=== PATIENT | male | born 1980 | race African-American/Black ===

== ENCOUNTER 2018-04-28 14:55 | Emergency (ER) | payer SELFPAY ==
--- NOTE | 2018-04-28 15:55 | RAD ---
RADIOGRAPH RIGHT FOREARM TWO VIEWS: DATE: 04-28-18 TIME: 3:18 P.M. HISTORY: 38-year-old male status post-acute traumatic injury to the forearm. Comparison: 10-21-10 FINDINGS: There is a new finding of anterior displacement of the lunate bone. There is no acute fracture of the radius or ulna. Chronic blunting of the ulnar styloid process as previously demonstrated. IMPRESSION: 1. Traumatic lunate dislocation at the wrist, incompletely imaged. Recommend dedicated 3 or 4 view ra diographic study of the right wrist. 2. No acute fracture of the radius or forearm identified. POS: [facility]
--- NOTE | 2018-04-28 15:56 | RAD ---
RADIOGRAPH RIGHT HAND 3 VIEWS: Date: 04/28/18 Time: 1521 hours HISTORY: 38-year-old male with traumatic right hand pain. FINDINGS: The lunate is rotated and displaced anteriorly relative to the radius and relative to the other carpa l bones. No acute fracture is identified. The ulnar styloid process is chronically blunted, similar i n appearance to forearm radiograph of 10/21/10. IMPRESSION: Acute, traumatic lunate dislocation. POS: [facility]
--- NOTE | 2018-04-28 16:03 | RAD ---
RIGHT WRIST FOUR VIEWS: INDICATIONS: Injury. COMPARISON: None. FINDINGS: There is a volar perilunate dislocation of the lunate. There is also volar dislocation of the scapho id. No definite acute fracture is evident. IMPRESSION: Complex volar wrist dislocation with a perilunate component. POS: [facility]
[2018-04-28] MEDS ORDERED: HYDROcodone/Acetaminophen 10/325 mg Tablet ONE (17:12)
[2018-04-28] MEDS ORDERED: KETAMINE 100 MG/ML (5ML VIAL) ONE (17:33)
[2018-04-28] MEDS ORDERED: Naloxone HCl 0.4 mg/ml Vial ONE (17:33)
[2018-04-28] MEDS ORDERED: Sodium Chloride 0.9% 500 ML ONE (17:35)
--- NOTE | 2018-04-28 18:41 | RAD ---
RIGHT WRIST RADIOGRAPHS TWO VIEWS: 04/28/2018 PROVIDED CLINICAL HISTORY: Post reduction. FINDINGS: There is persistent volar dislocation of the lunate. IMPRESSION: As above. POS: [facility]
[2018-04-28 20:05] LABS: #Basophils 0.2 thou/uL (0.0-0.2); #Lymphocytes 1.4 thou/uL (1.20-3.40); #Monocytes 2.2 thou/uL (0.11-0.59); #Neutrophils 12.3 thou/uL (1.40-6.50); %Basophils 1.3 % (0.0-1.0); %Eosinophils 0.1 % (0.0-10.0); %Lymphocytes 8.7 % (21.0-51.0); %Monocytes 13.8 % (0.0-10.0); %Neutrophils 76.1 % (42.0-75.0); Hemoglobin 16.1 g/dL (14.0-18.0); Mean Corpuscular HGB CONC 32.5 g/dL (32.0-36.0); Mean Corpuscular Hemoglobin 30.1 pg (27.0-31.0); Mean Corpuscular Volume 92.5 fL (78.0-98.0); Mean Platelet Volume 7.4 fL (7.4-10.4); Platelet Count 261 thou/uL (130-400); RBC Distribution Width 12.4 % (11.5-14.5); Red Blood Cell (RBC) Count 5.34 mill/uL (4.70-6.10); White Blood Cell (WBC) Count 16.2 thou/uL (4.8-10.8)
[2018-04-28 20:11] LABS: ALT (SGPT) 18 U/L (8-55); AST (SGOT) 30 U/L (5-34); Albumin 5.2 g/dL (3.5-5.0); Alkaline Phosphatase 82 U/L (40-150); Anion Gap 19 mmol/L (10-20); BUN (Urea Nitrogen) 15 mg/dL (8.9-20.6); Bilirubin, Total 1.4 mg/dL (0.2-1.2); Calc. Creatinine Clearance 0 mL/min (70-130); Calcium 10.4 mg/dL (7.8-10.44); Carbon Dioxide 23 mmol/L (22-29); Chloride 100 mmol/L (98-107); Estimated GFR-MDRD 72; Globulin 3.5 g/dL (2.4-3.5); Glucose 84 mg/dL (70-105); Potassium 4.7 mmol/L (3.5-5.1); Protein, Total 8.7 g/dL (6.0-8.3); Sodium 137 mmol/L (136-145)
== END 2018-04-28 20:20 | disposition short-term general hospital (02) ==
LOC: NAV ERS 14:55
DX: S63.094A Other dislocation of right wrist and hand, initial encounter (principal); F41.9 Anxiety disorder, unspecified; F17.210 Nicotine dependence, cigarettes, uncomplicated; Z79.899 Other long term (current) drug therapy; W19.XXXA Unspecified fall, initial encounter
CPT/HCPCS: 29125; 80053; 85025; 99152; 99153; J2310; J7050

== ENCOUNTER 2018-05-14 09:06 | Emergency (ER) | payer SELFPAY ==
[2018-05-14] MEDS ORDERED: Bacitracin Zinc 1 Packet ONE (10:05)
== END 2018-05-14 10:25 | disposition home or self-care (01) ==
LOC: NAV ERS 09:06
DX: S51.811D Laceration without foreign body of right forearm, subsequent encounter (principal); F41.9 Anxiety disorder, unspecified; F17.210 Nicotine dependence, cigarettes, uncomplicated; Z79.899 Other long term (current) drug therapy

== ENCOUNTER 2018-09-09 13:59 | Outpatient (CLI) | payer OTHER ==
--- NOTE | 2018-09-09 14:14 | RAD ---
Right wrist 2 views HISTORY: Wrist pain. Disability evaluation. COMPARISON: 04/28/2018. FINDINGS: Dorsal operative fixation of the wrist with a longitudinal bar and screws transfixing the d istal radius to the carpus to the third metacarpal. No. Hardware lucency. Alignment is anatomic. Lunate is now in good position. Mild osteoarthritic changes of the wrist. IMPRESSION: Internal fixation of the wrist. Reduction of lunate dislocation. No evidence of hardware complication.
--- NOTE | 2018-09-09 15:09 | RAD ---
RIGHT HAND: 09/09/18 Two views. INDICATIONS: Disability evaluation. There has been prior internal fixation with a dorsal plate transfixing the radius to the third metaca rpal. Carpals appear normally aligned. MCP and IP joints show very mild degenerative change. No erosi ve change. No fracture or acute abnormality. IMPRESSION: Mild DJD. Postoperative changes as described. POS: [facility]
== END 2018-09-09 14:00 | disposition home or self-care (01) ==
LOC: NAV RAD 13:59
PROVIDERS: ATTEND Family Medicine
DX: Z02.71 Encounter for disability determination (principal); S63.094D Other dislocation of right wrist and hand, subsequent encounter; G56.21 Lesion of ulnar nerve, right upper limb; M19.041 Primary osteoarthritis, right hand; Z98.890 Other specified postprocedural states

== ENCOUNTER 2019-01-27 19:17 | Emergency (ER) | payer OTHER ==
[2019-01-27 19:52] LABS: Amphetamine Detected (NotDetected); Methamphetamine Detected (NotDetected)
[2019-01-27 19:53] LABS: Barbiturates Screen Not Detected (NotDetected); Benzodiazepine Screen Not Detected (NotDetected); Cocaine Metabolite Screen Detected (NotDetected); Medtox Control Line Valid? VALID (VALID); Methadone Not Detected (NotDetected); Opiate Screen Not Detected (NotDetected); Oxycodone Screen Not Detected (NotDetected); Phencyclidine (PCP) Not Detected (NotDetected); THC/Cannabinoid Screen Not Detected (NotDetected); Tricyclic Screen Not Detected (NotDetected)
[2019-01-27 20:19] LABS: Hemoglobin 15.6 g/dL (14.0-18.0); Mean Corpuscular Hemoglobin 29.3 pg (27.0-31.0); Mean Corpuscular Volume 91.6 fL (78.0-98.0); Mean Platelet Volume 7.2 fL (7.4-10.4); Platelet Count 274 thou/uL (130-400); RBC Distribution Width 12.5 % (11.5-14.5); Red Blood Cell (RBC) Count 5.33 mill/uL (4.70-6.10); White Blood Cell (WBC) Count 12.2 thou/uL (4.8-10.8)
[2019-01-27 20:22] LABS: Bilirubin Small (Negative); Blood, Urine Moderate (Negative); Clarity Slightly Cloudy (Clear); Glucose, Urine (Dipstick) Negative (Negative); Leukocyte Negative (Negative); Nitrite Negative (Negative); Protein, Urine (Dipstick) > or equal to 300 mg/dL (Neg-Trace); Urobilinogen 0.2 mg/dL (Less than 2)
[2019-01-27 20:29] LABS: Band 1 % (5-11); Eosinophils 1 % (0-10); Lymphocytes 9 % (21-51); MDiff Complete? YES; Monocytes 5 % (0-10); Neutrophil 84 % (42-75); Platelet Morphology Comment Appears Adequate; RBC Morphology Normal
[2019-01-27 20:33] LABS: Bacteria/HPF None Seen HPF (None Seen); WBC/HPF 0-3 HPF (0-3)
[2019-01-27 20:34] LABS: ALT (SGPT) 39 U/L (8-55); AST (SGOT) 74 U/L (5-34); Acetaminophen Less than 6.0 mcg/mL (10.0-30.0); Albumin 5.2 g/dL (3.5-5.0); Alcohol Less than 10 mg/dL (Less than 10); Alkaline Phosphatase 73 U/L (40-110); Anion Gap 20 mmol/L (10-20); BUN (Urea Nitrogen) 25 mg/dL (8.9-20.6); Bilirubin, Total 1.8 mg/dL (0.2-1.2); Calc. Creatinine Clearance 0 mL/min (70-130); Calcium 10.3 mg/dL (7.8-10.44); Carbon Dioxide 22 mmol/L (22-29); Chloride 102 mmol/L (98-107); Estimated GFR-MDRD 50; Glucose 120 mg/dL (70-105); Potassium 3.9 mmol/L (3.5-5.1); Protein, Total 8.2 g/dL (6.0-8.3); Salicylate Less than 8.0 mg/dL (15.0-30.0); Sodium 140 mmol/L (136-145)
[2019-01-27 20:51] LABS: CKMB 6.6 ng/mL (0-6.6)
[2019-01-27] MEDS ORDERED: Lorazepam 2 MG/ML VIAL ONE (22:32)
[2019-01-27] MEDS ORDERED: Sodium Chloride 0.9% 1,000 ML ONE (22:32)
== END 2019-01-27 23:30 | disposition short-term general hospital (02) ==
LOC: NAV ERS 19:17
DX: F15.129 Other stimulant abuse with intoxication, unspecified (principal); F14.129 Cocaine abuse with intoxication, unspecified; N28.9 Disorder of kidney and ureter, unspecified; R74.8 Abnormal levels of other serum enzymes; R79.89 Other specified abnormal findings of blood chemistry; F41.9 Anxiety disorder, unspecified; F17.210 Nicotine dependence, cigarettes, uncomplicated
CPT/HCPCS: 80053; 80306; 80307; 81003; 81015; 82550; 82553; 84484; 85025; 93005; 96374; J2060; J7050

== ENCOUNTER 2019-06-17 08:25 | Outpatient (CLI) | payer OTHER ==
--- NOTE | 2019-06-17 10:30 | ULT ---
ABDOMINAL ULTRASOUND HISTORY: Left lower quadrant abdominal pain for one week. FINDINGS: Liver: 2 echogenic lesions are seen in the right hepatic lobe measuring 1.5 cm and 1.2 cm may represe nt. Gallbladder: No gallbladder calculi are visualized. There is no gallbladder wall thickening or perich olecystic fluid. Common duct: Common duct is normal in caliber measuring 0.4 cm in diameter. Pancreas: The limited visualized pancreas demonstrates a normal sonographic appearance. IVC: Limited visualized IVC has a normal sonographic appearance. Aorta: The aorta is normal in caliber. Spleen: Within normal limits. Kidneys: A small 1.7 cm anechoic structure is seen in the medial aspect midportion left kidney most s uggestive of a cyst. The left kidney measures 10.5 cm in length. The right kidney has a normal sonographic appearance and measures 10.1 cm in length. IMPRESSION: 1. 2 echogenic lesions in the right hepatic lobe which may represent hemangiomas. [facility] for further evaluation and characterization. 2. Left renal cyst. 3. No gallbladder calculi are visualized, and the common duct is normal in caliber.
== END 2019-06-17 08:26 | disposition home or self-care (01) ==
LOC: NAV ULT 08:25
PROVIDERS: ATTEND Nurse Practitioner Family
DX: R10.32 Left lower quadrant pain (principal); K76.9 Liver disease, unspecified; N28.1 Cyst of kidney, acquired
CPT/HCPCS: 93975

== ENCOUNTER 2019-11-25 15:11 | Emergency (ER) | payer OTHER ==
[2019-11-25] MEDS ORDERED: Lorazepam 2 MG/ML VIAL ONE (16:06)
[2019-11-25] MEDS ORDERED: Sodium Chloride 0.9% 1,000 ML ONE ×2 (16:13→17:03)
[2019-11-25 16:23] LABS: #Basophils 0.2 thou/uL (0.0-0.2); #Monocytes 2.1 thou/uL (0.11-0.59); #Neutrophils 11.4 thou/uL (1.40-6.50); %Basophils 1.1 % (0.0-1.0); %Lymphocytes 6.6 % (21.0-51.0); %Monocytes 14.3 % (0.0-10.0); %Neutrophils 78.1 % (42.0-75.0); Hemoglobin 16.1 g/dL (14.0-18.0); Mean Corpuscular HGB CONC 31.3 g/dL (32.0-36.0); Mean Corpuscular Hemoglobin 29.7 pg (27.0-31.0); Mean Corpuscular Volume 94.9 fL (78.0-98.0); Mean Platelet Volume 7.8 fL (7.4-10.4); Platelet Count 271 thou/uL (130-400); RBC Distribution Width 12.3 % (11.5-14.5); Red Blood Cell (RBC) Count 5.41 mill/uL (4.70-6.10); White Blood Cell (WBC) Count 14.6 thou/uL (4.8-10.8)
[2019-11-25 16:41] LABS: ALT (SGPT) 42 U/L (8-55); AST (SGOT) 82 U/L (5-34); Albumin 5.5 g/dL (3.5-5.0); Alkaline Phosphatase 73 U/L (40-110); Anion Gap 23 mmol/L (10-20); BUN (Urea Nitrogen) 30 mg/dL (8.9-20.6); Bilirubin, Total 1.8 mg/dL (0.2-1.2); Calc. Creatinine Clearance 0 mL/min (70-130); Calcium 10.8 mg/dL (7.8-10.44); Carbon Dioxide 17 mmol/L (22-29); Chloride 101 mmol/L (98-107); Estimated GFR-MDRD 41; Globulin 3.1 g/dL (2.4-3.5); Glucose 109 mg/dL (70-105); Potassium 3.7 mmol/L (3.5-5.1); Protein, Total 8.6 g/dL (6.0-8.3); Sodium 137 mmol/L (136-145)
[2019-11-25 16:47] LABS: Acetaminophen Less than 6.0 mcg/mL (10.0-30.0); Alcohol Less than 10 mg/dL (Less than 10); Salicylate Less than 8.0 mg/dL (15.0-30.0)
[2019-11-25 17:05] LABS: Bilirubin Small (Negative); Blood, Urine Large (Negative); Clarity SL HAZY (Clear); Glucose, Urine (Dipstick) Negative (Negative); Ketone, Urine 15 mg/dL (Negative); Leukocyte Negative (Negative); Nitrite Negative (Negative); Protein, Urine (Dipstick) > or equal to 300 mg/dL (Neg-Trace); Urobilinogen 0.2 mg/dL (Less than 2); pH, Urine 5.5 (5.0-9.0)
[2019-11-25 17:07] LABS: RBC/HPF 0-3 HPF (0-3); Squamous Epithelial 0-3 HPF (0-3); WBC/HPF 0-3 HPF (0-3)
[2019-11-25 17:08] LABS: Bacteria/HPF Rare-Few HPF (None Seen); Mucous/LPF 1+ LPF (<2+)
[2019-11-25 17:09] LABS: Specific Gravity, Urine 1.028 (1.002-1.036)
[2019-11-25 17:11] LABS: Amphetamine Detected (NotDetected); Barbiturates Screen Not Detected (NotDetected); Benzodiazepine Screen Not Detected (NotDetected); Cocaine Metabolite Screen Not Detected (NotDetected); Medtox Control Line Valid? VALID (VALID); Methadone Not Detected (NotDetected); Methamphetamine Detected (NotDetected); Opiate Screen Not Detected (NotDetected); Oxycodone Screen Not Detected (NotDetected); Phencyclidine (PCP) Not Detected (NotDetected); THC/Cannabinoid Screen Not Detected (NotDetected); Tricyclic Screen Not Detected (NotDetected)
[2019-11-26 01:24] LABS: #Eosinphils 0.5 thou/uL (0.0-0.7); #Lymphocytes 1.7 thou/uL (1.20-3.40); #Monocytes 1.4 thou/uL (0.11-0.59); #Neutrophils 7.6 thou/uL (1.40-6.50); %Basophils 1.3 % (0.0-1.0); %Eosinophils 0.5 % (0.0-10.0); %Lymphocytes 15.2 % (21.0-51.0); %Monocytes 13.3 % (0.0-10.0); %Neutrophils 69.7 % (42.0-75.0); Hemoglobin 12.6 g/dL (14.0-18.0); Mean Corpuscular HGB CONC 31.8 g/dL (32.0-36.0); Mean Corpuscular Hemoglobin 29.9 pg (27.0-31.0); Mean Corpuscular Volume 94.1 fL (78.0-98.0); Mean Platelet Volume 7.1 fL (7.4-10.4); Platelet Count 201 thou/uL (130-400); RBC Distribution Width 12.2 % (11.5-14.5); Red Blood Cell (RBC) Count 4.22 mill/uL (4.70-6.10); White Blood Cell (WBC) Count 10.8 thou/uL (4.8-10.8)
[2019-11-26 01:25] LABS: #Basophils 0.1 thou/uL (0.0-0.2)
[2019-11-26 01:30] LABS: Anion Gap 12 mmol/L (10-20)
[2019-11-26 01:33] LABS: BUN (Urea Nitrogen) 17 mg/dL (8.9-20.6); CK (CPK) 3217 U/L (30-200); Calc. Creatinine Clearance 0 mL/min (70-130); Calcium 8.1 mg/dL (7.8-10.44); Carbon Dioxide 20 mmol/L (22-29); Chloride 109 mmol/L (98-107); Estimated GFR-MDRD Greater than 90; Glucose 96 mg/dL (70-105); Potassium 3.3 mmol/L (3.5-5.1); Sodium 138 mmol/L (136-145)
== END 2019-11-26 08:30 ==
LOC: NAV ERS 15:11
DX: F15.10 Other stimulant abuse, uncomplicated (principal); R45.851 Suicidal ideations; F60.3 Borderline personality disorder; F41.9 Anxiety disorder, unspecified; F17.210 Nicotine dependence, cigarettes, uncomplicated; Z79.891 Long term (current) use of opiate analgesic; Z79.899 Other long term (current) drug therapy
CPT/HCPCS: 80048; 80053; 80306; 80307; 81003; 81015; 82550; 85025; 96361; 96374; J2060; J7050

== ENCOUNTER 2020-01-29 15:33 | Emergency (ER) | payer OTHER ==
[2020-01-29 16:49] LABS: Amphetamine Detected (NotDetected); Cocaine Metabolite Screen Detected (NotDetected); Methamphetamine Detected (NotDetected); Opiate Screen Not Detected (NotDetected); Phencyclidine (PCP) Not Detected (NotDetected); THC/Cannabinoid Screen Detected (NotDetected)
[2020-01-29 16:50] LABS: Barbiturates Screen Not Detected (NotDetected); Benzodiazepine Screen Not Detected (NotDetected); Medtox Control Line Valid? VALID (VALID); Methadone Not Detected (NotDetected); Oxycodone Screen Not Detected (NotDetected); Tricyclic Screen Not Detected (NotDetected)
[2020-01-29] MEDS ORDERED: Lorazepam 0.5 MG TAB ONE (17:53)
[2020-01-29 18:55] LABS: #Basophils 0.1 thou/uL (0.0-0.2); #Lymphocytes 1.1 thou/uL (1.20-3.40); #Monocytes 1.3 thou/uL (0.11-0.59); #Neutrophils 9.4 thou/uL (1.40-6.50); %Lymphocytes 9.5 % (21.0-51.0); %Monocytes 11.1 % (0.0-10.0); %Neutrophils 78.5 % (42.0-75.0); Hemoglobin 16.4 g/dL (14.0-18.0); Mean Corpuscular HGB CONC 31.1 g/dL (32.0-36.0); Mean Corpuscular Hemoglobin 29.6 pg (27.0-31.0); Mean Corpuscular Volume 95.3 fL (78.0-98.0); Mean Platelet Volume 7.9 fL (7.4-10.4); Platelet Count 284 thou/uL (130-400); RBC Distribution Width 12.4 % (11.5-14.5); Red Blood Cell (RBC) Count 5.53 mill/uL (4.70-6.10)
[2020-01-29 19:13] LABS: ALT (SGPT) 19 U/L (8-55); AST (SGOT) 21 U/L (5-34); Acetaminophen Less than 6.0 mcg/mL (10.0-30.0); Albumin 5.3 g/dL (3.5-5.0); Alcohol Less than 10 mg/dL (Less than 10); Alkaline Phosphatase 74 U/L (40-110); Anion Gap 20 mmol/L (10-20); BUN (Urea Nitrogen) 20 mg/dL (8.9-20.6); Bilirubin, Total 1.8 mg/dL (0.2-1.2); Calc. Creatinine Clearance 0 mL/min (70-130); Calcium 10.1 mg/dL (7.8-10.44); Carbon Dioxide 18 mmol/L (22-29); Chloride 101 mmol/L (98-107); Estimated GFR-MDRD 62; Globulin 3.4 g/dL (2.4-3.5); Glucose 109 mg/dL (70-105); Protein, Total 8.7 g/dL (6.0-8.3); Salicylate Less than 8.0 mg/dL (15.0-30.0); Sodium 135 mmol/L (136-145)
== END 2020-01-29 20:23 ==
LOC: NAV ERS 15:33
DX: F15.10 Other stimulant abuse, uncomplicated (principal); E86.0 Dehydration; F41.9 Anxiety disorder, unspecified; F17.210 Nicotine dependence, cigarettes, uncomplicated; Z79.899 Other long term (current) drug therapy
CPT/HCPCS: 80053; 80306; 80307; 84484; 85025; 99284

== ENCOUNTER 2021-04-25 17:40 | Emergency (ER) | payer OTHER ==
[2021-04-25] MEDS ORDERED: Lorazepam 2 MG/ML VIAL ONE (18:25)
== END 2021-04-25 18:53 | disposition home or self-care (01) ==
LOC: NAV ERS 17:40
DX: F14.129 Cocaine abuse with intoxication, unspecified (principal); F17.210 Nicotine dependence, cigarettes, uncomplicated
CPT/HCPCS: 93005; 96372; J2060

== ENCOUNTER 2021-04-26 22:44 | Emergency (ER) | payer OTHER ==
[2021-04-26 23:17] LABS: Bilirubin Small (Negative); Blood, Urine Moderate (Negative); Clarity Clear (Clear); Glucose, Urine (Dipstick) Negative (Negative); Ketone, Urine 80 mg/dL (Negative); Leukocyte Negative (Negative); Nitrite Negative (Negative); Protein, Urine (Dipstick) 100 mg/dL (Neg-Trace); pH, Urine 5.5 (5.0-9.0)
[2021-04-26 23:24] LABS: Specific Gravity, Urine 1.026 (1.002-1.036)
[2021-04-26 23:46] LABS: Amphetamine Not Detected (NotDetected); Barbiturates Screen Not Detected (NotDetected); Benzodiazepine Screen Detected (NotDetected); Cocaine Metabolite Screen Detected (NotDetected); Methadone Not Detected (NotDetected); Methamphetamine Not Detected (NotDetected); Opiate Screen Not Detected (NotDetected); Oxycodone Screen Not Detected (NotDetected); Phencyclidine (PCP) Not Detected (NotDetected); THC/Cannabinoid Screen Detected (NotDetected); Tricyclic Screen Not Detected (NotDetected)
[2021-04-26 23:47] LABS: Medtox Control Line Valid? VALID (VALID)
[2021-04-26 23:48] LABS: Squamous Epithelial None Seen HPF (0-3); WBC/HPF 0-3 HPF (0-3)
[2021-04-26 23:49] LABS: Bacteria/HPF None Seen HPF (None Seen); Mucous/LPF 1+ LPF (<2+)
[2021-04-26] MEDS ORDERED: Lorazepam 2 MG/ML VIAL ONE (23:57)
== END 2021-04-27 01:11 | disposition home or self-care (01) ==
LOC: NAV ERS 22:44
DX: F19.10 Other psychoactive substance abuse, uncomplicated (principal); F17.210 Nicotine dependence, cigarettes, uncomplicated
CPT/HCPCS: 80306; 93005; 96372; J2060

== ENCOUNTER 2021-04-27 15:14 | Emergency (ER) | payer OTHER ==
[2021-04-27] MEDS ORDERED: Lorazepam 0.5 MG TAB ONE (15:29)
[2021-04-27] MEDS ORDERED: Boostrix 0.5 ML (Tdap) VIAL ONE (15:29)
[2021-04-27] MEDS ORDERED: Lorazepam 2 MG/ML VIAL ONE (16:07)
[2021-04-27] MEDS ORDERED: Lidocaine 1% w/Epinephrine 1:100K 20 ML VIAL ONE (16:26)
[2021-04-27 16:37] LABS: Bilirubin Small (Negative); Blood, Urine Moderate (Negative); Clarity Clear (Clear); Glucose, Urine (Dipstick) Negative (Negative); Ketone, Urine 80 mg/dL (Negative); Leukocyte Negative (Negative); Nitrite Negative (Negative); Protein, Urine (Dipstick) 100 mg/dL (Neg-Trace); pH, Urine 5.5 (5.0-9.0)
[2021-04-27 16:40] LABS: Specific Gravity, Urine 1.029 (1.005-1.030)
[2021-04-27 16:47] LABS: Squamous Epithelial 0-3 HPF (0-3); WBC/HPF 0-3 HPF (0-3)
[2021-04-27 16:48] LABS: THC/Cannabinoid Screen Detected (NotDetected)
[2021-04-27 16:49] LABS: Amphetamine Not Detected (NotDetected); Benzodiazepine Screen Detected (NotDetected); Cocaine Metabolite Screen Detected (NotDetected); Methamphetamine Not Detected (NotDetected); Opiate Screen Not Detected (NotDetected); Phencyclidine (PCP) Not Detected (NotDetected); Tricyclic Screen Not Detected (NotDetected)
[2021-04-27 16:50] LABS: Barbiturates Screen Not Detected (NotDetected); Medtox Control Line Valid? VALID (VALID); Methadone Not Detected (NotDetected); Oxycodone Screen Not Detected (NotDetected)
[2021-04-27 17:07] LABS: SARS-CoV-2 NAA Rapid Test Not Detected (NotDetected)
[2021-04-27 17:53] LABS: #Basophils 0.2 thou/uL (0.0-0.2); #Eosinphils 0.6 thou/uL (0.0-0.7); #Lymphocytes 1.2 thou/uL (1.20-3.40); #Monocytes 1.4 thou/uL (0.11-0.59); #Neutrophils 6.6 thou/uL (1.40-6.50); %Basophils 2.1 % (0.0-1.0); %Eosinophils 5.7 % (0.0-10.0); %Lymphocytes 11.7 % (21.0-51.0); %Monocytes 13.8 % (0.0-10.0); %Neutrophils 66.6 % (42.0-75.0); Hemoglobin 15.7 g/dL (14.0-18.0); Mean Corpuscular HGB CONC 32.9 g/dL (32.0-36.0); Mean Corpuscular Volume 94.3 fL (78.0-98.0); Mean Platelet Volume 7.2 fL (7.4-10.4); Platelet Count 262 thou/uL (130-400); Red Blood Cell (RBC) Count 5.06 mill/uL (4.70-6.10)
[2021-04-27 18:04] LABS: ALT (SGPT) 35 U/L (8-55); AST (SGOT) 54 U/L (5-34); Albumin 4.3 g/dL (3.5-5.0); Alcohol Less than 10 mg/dL (Less than 10); Alkaline Phosphatase 54 U/L (40-110); Anion Gap 18 mmol/L (10-20); BUN (Urea Nitrogen) 10 mg/dL (8.9-20.6); Bilirubin, Total 1.5 mg/dL (0.2-1.2); Calc. Creatinine Clearance 0 mL/min (70-130); Calcium 8.4 mg/dL (7.8-10.44); Carbon Dioxide 18 mmol/L (22-29); Chloride 104 mmol/L (98-107); Globulin 2.6 g/dL (2.4-3.5); Glucose 86 mg/dL (70-105); Potassium 3.2 mmol/L (3.5-5.1); Protein, Total 6.9 g/dL (6.0-8.3); Sodium 137 mmol/L (136-145)
[2021-04-27 18:05] LABS: Acetaminophen Less than 6.0 mcg/mL (10.0-30.0); Alcohol Less than 10 mg/dL (Less than 10); CK (CPK) 1865 U/L (30-200); Salicylate Less than 8.0 mg/dL (15.0-30.0)
== END 2021-04-27 23:18 ==
LOC: NAV ERS 15:14
DX: S51.812A Laceration without foreign body of left forearm, initial encounter (principal); R45.851 Suicidal ideations; F14.10 Cocaine abuse, uncomplicated; M62.82 Rhabdomyolysis; F32.9 Major depressive disorder, single episode, unspecified; F41.9 Anxiety disorder, unspecified; F17.210 Nicotine dependence, cigarettes, uncomplicated; Z79.899 Other long term (current) drug therapy; X78.1XXA Intentional self-harm by knife, initial encounter
CPT/HCPCS: 12034; 80053; 80306; 80307; 81003; 81015; 82550; 84443; 85025; 90471; 90715; 93005; 96372; J2060; U0002

== ENCOUNTER 2021-05-13 11:09 | Emergency (ER) | payer OTHER ==
[2021-05-13] MEDS ORDERED: Bacitracin 1 PK ONE (11:36)
== END 2021-05-13 11:40 | disposition home or self-care (01) ==
LOC: NAV ERS 11:09
DX: Z48.02 Encounter for removal of sutures (principal); F17.210 Nicotine dependence, cigarettes, uncomplicated

== ENCOUNTER 2021-09-24 18:58 | Emergency (ER) | payer OTHER ==
[2021-09-24] MEDS ORDERED: Lorazepam 2 MG/ML VIAL ONE (19:17)
== END 2021-09-24 20:30 | disposition home or self-care (01) ==
LOC: NAV ERS 18:58
DX: F15.10 Other stimulant abuse, uncomplicated (principal); F17.210 Nicotine dependence, cigarettes, uncomplicated; Z79.899 Other long term (current) drug therapy
CPT/HCPCS: 93005; 96372; J2060

== ENCOUNTER 2022-09-02 10:46 | Emergency (ER) | payer OTHER ==
[2022-09-02] MEDS ORDERED: Sodium Chloride 0.9% 1,000 ML ONE ×2 (11:25→12:30)
[2022-09-02 11:26] LABS: #Basophils 0.1 thou/uL (0.0-0.2); #Lymphocytes 0.8 thou/uL (1.20-3.40); #Monocytes 1.1 thou/uL (0.11-0.59); #Neutrophils 7.3 thou/uL (1.40-6.50); %Eosinophils 0.1 % (0.0-10.0); %Monocytes 11.7 % (0.0-10.0); %Neutrophils 78.3 % (42.0-75.0); Mean Corpuscular HGB CONC 32.2 g/dL (32.0-36.0); Mean Corpuscular Hemoglobin 29.7 pg (27.0-31.0); Mean Corpuscular Volume 92.2 fl (78.0-98.0); Platelet Count 224 10x3/uL (130-400); RBC Distribution Width 11.7 % (11.5-14.5); White Blood Cell (WBC) Count 9.3 10x3/uL (4.8-10.8)
[2022-09-02 11:45] LABS: ALT (SGPT) 51 U/L (8-55); AST (SGOT) 98 U/L (5-34); Albumin 5.3 g/dL (3.5-5.0); Alkaline Phosphatase 68 U/L (40-110); Anion Gap 18 mmol/L (10-20); BUN (Urea Nitrogen) 12 mg/dL (8.9-20.6); Bilirubin, Total 1.1 mg/dL (0.2-1.2); Calc. Creatinine Clearance 0 mL/min (70-130); Calcium 10.2 mg/dL (7.8-10.44); Carbon Dioxide 20 mmol/L (22-29); Chloride 105 mmol/L (98-107); Estimated GFR 66; Globulin 2.7 g/dL (2.4-3.5); Glucose 95 mg/dL (70-105); Potassium 4.3 mmol/L (3.5-5.1); Sodium 139 mmol/L (136-145)
[2022-09-02 11:53] LABS: Bilirubin Negative (Negative); Blood, Urine Moderate (Negative); Clarity Clear (Clear); Glucose, Urine (Dipstick) Negative (Negative); Ketone, Urine 40 mg/dL (Negative); Leukocyte Negative (Negative); Nitrite Negative (Negative); Protein, Urine (Dipstick) > or equal to 300 mg/dL (Neg-Trace); Urobilinogen 0.2 mg/dL (Less than 2); pH, Urine 5.5 (5.0-9.0)
[2022-09-02 11:57] LABS: Specific Gravity, Urine 1.021 (1.002-1.036)
[2022-09-02 11:58] LABS: Bacteria/HPF Rare-Few HPF (None Seen); Mucous/LPF 1+ LPF (<2+); Squamous Epithelial None Seen HPF (0-3); WBC/HPF None Seen HPF (0-3)
[2022-09-02] MEDS ORDERED: Ondansetron PF 4 MG/2 ML Vial ONE (11:58)
[2022-09-02 12:03] LABS: CKMB 15.6 ng/mL (0-6.6)
[2022-09-02 12:10] LABS: Cocaine Metabolite Screen Detected (NotDetected); Methamphetamine Not Detected (NotDetected); Opiate Screen Not Detected (NotDetected); Phencyclidine (PCP) Not Detected (NotDetected); THC/Cannabinoid Screen Not Detected (NotDetected)
[2022-09-02 12:11] LABS: Amphetamine Not Detected (NotDetected); Barbiturates Screen Not Detected (NotDetected); Benzodiazepine Screen Detected (NotDetected); Methadone Not Detected (NotDetected); Oxycodone Screen Not Detected (NotDetected); Tricyclic Screen Not Detected (NotDetected)
== END 2022-09-02 15:52 | disposition home or self-care (01) ==
LOC: NAV ERS 10:46
DX: F14.10 Cocaine abuse, uncomplicated (principal); R79.89 Other specified abnormal findings of blood chemistry; N28.9 Disorder of kidney and ureter, unspecified; E78.00 Pure hypercholesterolemia, unspecified; F17.210 Nicotine dependence, cigarettes, uncomplicated; Z79.899 Other long term (current) drug therapy
CPT/HCPCS: 36415; 80053; 80306; 81003; 81015; 82553; 84484; 85025; 93005; J2405; J7050

== ENCOUNTER 2022-09-03 03:20 | Emergency (ER) | payer OTHER ==
[2022-09-03] MEDS ORDERED: Lorazepam 2 MG/ML VIAL ONE (04:01)
[2022-09-03] MEDS ORDERED: Sodium Chloride 0.9% 1,000 ML ONE (04:01)
[2022-09-03 04:26] LABS: Mean Corpuscular Hemoglobin 29.9 pg (27.0-31.0); Mean Corpuscular Volume 92.8 fl (78.0-98.0); White Blood Cell (WBC) Count 9.2 10x3/uL (4.8-10.8)
[2022-09-03 04:27] LABS: #Basophils 0.1 thou/uL (0.0-0.2); #Neutrophils 7.1 thou/uL (1.40-6.50); %Monocytes 11.1 % (0.0-10.0); %Neutrophils 76.9 % (42.0-75.0); Manual Diff?? NO; Mean Corpuscular HGB CONC 32.2 g/dL (32.0-36.0); Mean Platelet Volume 6.9 fL (7.4-10.4); Platelet Count 238 10x3/uL (130-400)
[2022-09-03 04:28] LABS: AST (SGOT) 108 U/L (5-34); Acetaminophen Less than 10.0 mcg/mL (10.0-30.0); Albumin 4.8 g/dL (3.5-5.0); Alcohol Less than 10 mg/dL (Less than 10); Alkaline Phosphatase 59 U/L (40-110); Anion Gap 17 mmol/L (10-20); BUN (Urea Nitrogen) 12 mg/dL (8.9-20.6); Calc. Creatinine Clearance 0 mL/min (70-130); Calcium 9.6 mg/dL (7.8-10.44); Carbon Dioxide 21 mmol/L (22-29); Chloride 106 mmol/L (98-107); Estimated GFR 74; Glucose 94 mg/dL (70-105); Potassium 4.3 mmol/L (3.5-5.1); Protein, Total 7.8 g/dL (6.0-8.3); Salicylate Less than 8.0 mg/dL (15.0-30.0); Sodium 140 mmol/L (136-145)
[2022-09-03 04:31] LABS: ALT (SGPT) 59 U/L (8-55)
[2022-09-03 04:37] LABS: Amphetamine Not Detected (NotDetected); Barbiturates Screen Not Detected (NotDetected); Benzodiazepine Screen Detected (NotDetected); Cocaine Metabolite Screen Detected (NotDetected); Methadone Not Detected (NotDetected); Methamphetamine Not Detected (NotDetected); Opiate Screen Not Detected (NotDetected); Oxycodone Screen Not Detected (NotDetected); Phencyclidine (PCP) Not Detected (NotDetected); THC/Cannabinoid Screen Not Detected (NotDetected); Tricyclic Screen Not Detected (NotDetected)
[2022-09-03] MEDS ORDERED: Lorazepam 0.5 MG TAB ONE (05:00)
== END 2022-09-03 05:15 | disposition home or self-care (01) ==
LOC: NAV ERS 03:20
DX: F14.10 Cocaine abuse, uncomplicated (principal); I10 Essential (primary) hypertension; F17.210 Nicotine dependence, cigarettes, uncomplicated; E78.00 Pure hypercholesterolemia, unspecified; Z79.899 Other long term (current) drug therapy
CPT/HCPCS: 36415; 80053; 80306; 80307; 81003; 81015; 82553; 84484; 85025; 93005; 96361; 96374; 96375; J2060; J2405; J7050

== ENCOUNTER 2023-04-19 20:54 | Emergency (ER) | payer OTHER ==
[2023-04-19] MEDS ORDERED: Lorazepam 2 MG/ML VIAL ONE (22:08)
== END 2023-04-19 23:35 | disposition home or self-care (01) ==
LOC: NAV ERS 20:54
DX: F14.129 Cocaine abuse with intoxication, unspecified (principal); F17.210 Nicotine dependence, cigarettes, uncomplicated
CPT/HCPCS: 93005; 96374; J2060

== ENCOUNTER → 2023-04-23 | Emergency (ER) | payer OTHER ==
[~2023-04-23] MED LIST: Lorazepam 2 MG/ML VIAL ONE
== END ==
LOC: NAV ERS 22:55
DX: R44.1 Visual hallucinations (principal); E86.0 Dehydration; F15.90 Other stimulant use, unspecified, uncomplicated; F17.210 Nicotine dependence, cigarettes, uncomplicated
CPT/HCPCS: 94760; 96361; 96374; J2060

== ENCOUNTER 2024-03-06 23:44 | Emergency (ER) | payer OTHER ==
[2024-03-07] MEDS ORDERED: Lidocaine 1% w/Epinephrine 1:100K 20 ML VIAL ONE (00:03)
[2024-03-07] MEDS ORDERED: Bacitracin 1 PK ONE (00:04)
[2024-03-07] MEDS ORDERED: Lidocaine 1% (PF) 30 ML VIAL ONE (00:06)
[2024-03-07] MEDS ORDERED: Boostrix 0.5 ML (Tdap) VIAL (>/=7 yrs of age) ONE (00:07)
[2024-03-07 00:12] LABS: Bilirubin Small (Negative); Blood, Urine Moderate (Negative); Clarity Clear (Clear); Glucose, Urine (Dipstick) Negative (Negative); Ketone, Urine 80 mg/dL (Negative); Leukocyte Negative (Negative); Nitrite Negative (Negative); Protein, Urine (Dipstick) > or equal to 300 mg/dL (Neg-Trace); Urobilinogen 0.2 mg/dL (Less than 2); pH, Urine 5.5 (5.0-9.0)
[2024-03-07 00:15] LABS: Specific Gravity, Urine 1.027 (1.002-1.036)
[2024-03-07 00:16] LABS: Bacteria/HPF None Seen HPF (None Seen); CAUTI Indications for Culture Fever or rigors; RBC/HPF 0-3 HPF (0-3); Squamous Epithelial 0-3 HPF (0-3)
[2024-03-07 00:17] LABS: Urine Culture Reflex No No
[2024-03-07 00:20] LABS: Amphetamine Detected (NotDetected); Barbiturates Screen Not Detected (NotDetected); Benzodiazepine Screen Not Detected (NotDetected); Cocaine Metabolite Screen Detected (NotDetected); Methadone Not Detected (NotDetected); Methamphetamine Detected (NotDetected); Opiate Screen Not Detected (NotDetected); Oxycodone Screen Not Detected (NotDetected); Phencyclidine (PCP) Not Detected (NotDetected); THC/Cannabinoid Screen Not Detected (NotDetected); Tricyclic Screen Not Detected (NotDetected)
[2024-03-07 00:26] LABS: #Basophils 0.1 thou/uL (0.0-0.2); #Lymphocytes 1.2 thou/uL (1.20-3.40); #Monocytes 0.6 thou/uL (0.11-0.59); %Basophils 1.3 % (0.0-1.0); %Eosinophils 0.1 % (0.0-10.0); %Lymphocytes 9.6 % (21.0-51.0); %Monocytes 13.4 % (0.0-10.0); %Neutrophils 75.6 % (42.0-75.0); Hematocrit 53.8 % (42.0-52.0); Hemoglobin 17.9 g/dL (14.0-18.0); Mean Corpuscular HGB CONC 33.2 g/dL (32.0-36.0); Mean Corpuscular Hemoglobin 30.5 pg (27.0-31.0); Mean Corpuscular Volume 91.8 fl (78.0-98.0); Mean Platelet Volume 7.6 fL (7.4-10.4); Platelet Count 277 10x3/uL (130-400); RBC Distribution Width 11.9 % (11.5-14.5); Red Blood Cell (RBC) Count 5.86 mill/uL (4.70-6.10)
[2024-03-07 01:33] LABS: Acetaminophen Less than 10 mcg/mL (Less than 10); Alcohol Less than 10.0 mg/dL (Less than 10); Salicylate Less than 8.0 mg/dL (Less than 8.0)
[2024-03-07 01:35] LABS: ALT (SGPT) 39 U/L (8-55); AST (SGOT) 76 U/L (5-34); Albumin 5.5 g/dL (3.5-5.0); Alkaline Phosphatase 75 U/L (40-110); Anion Gap 23 mmol/L (10-20); BUN (Urea Nitrogen) 15 mg/dL (8.9-20.6); Bilirubin, Total 1.5 mg/dL (0.2-1.2); Calc. Creatinine Clearance 0 mL/min (70-130); Calcium 11.8 mg/dL (7.6-10.4); Carbon Dioxide 22 mmol/L (22-29); Chloride 102 mmol/L (98-107); Estimated GFR 57; Globulin 3.6 g/dL (2.4-3.5); Glucose 121 mg/dL (70-105); Potassium 4.1 mmol/L (3.5-5.1); Protein, Total 9.1 g/dL (6.0-8.3); Sodium 143 mmol/L (136-145)
== END 2024-03-07 02:03 | disposition home or self-care (01) ==
LOC: NAV ERS 23:44
DX: S61.411A Laceration without foreign body of right hand, initial encounter (principal); F17.210 Nicotine dependence, cigarettes, uncomplicated; W23.1XXA Caught, crushed, jammed, or pinched between stationary objects, initial encounter; Z23 Encounter for immunization
CPT/HCPCS: 12001; 36415; 80053; 80306; 80307; 81001; 85025; 90471; 90715

== ENCOUNTER 2024-03-13 10:47 | Emergency (ER) | payer OTHER | END 2024-03-13 11:01 | disposition home or self-care (01) | LOC: NAV ERS 10:47 | DX: S61.411D Laceration without foreign body of right hand, subsequent encounter (principal); F17.210 Nicotine dependence, cigarettes, uncomplicated; Z79.899 Other long term (current) drug therapy ==

== ENCOUNTER 2024-12-04 16:23 | Emergency (ER) | payer MEDICAID | END 2024-12-04 18:20 | disposition home or self-care (01) | LOC: NAV ERS 16:23 | DX: F14.10 Cocaine abuse, uncomplicated (principal); F17.210 Nicotine dependence, cigarettes, uncomplicated | CPT/HCPCS: 96372; 99283; J2060 ==